=== PATIENT | male | born 2000 | race Caucasian/White ===

== ENCOUNTER 2020-09-09 10:31 | Emergency (ER) | payer SELFPAY ==
[~2020-09-09] VITALS: Ht 182.9 cm; Wt 81.6 kg
[2020-09-09 11:05] VITALS: BP_SYST 125
--- NOTE | 2020-09-09 11:15 | NUR ---
PT IN TENT. DR. ABDI EXAMIING PT
[2020-09-09 12:00] VITALS: BP_SYST 129
--- NOTE | 2020-09-09 12:00 | NUR ---
Patient given written and verbal discharge instructions and verbalizes understanding. ER MD discussed with patient the results and treatment provided. Patient in stable condition. ID arm band removed. Rx of NONE given. Patient educated on pain management and to follow up with PMD. Pain Scale 0/10 Opportunity for questions provided and answered. Medication side effect fact sheet provided.
== END 2020-09-09 12:00 | disposition home or self-care (01) ==
LOC: SED 10:31
DX: B34.9 Viral infection, unspecified (principal); R50.9 Fever, unspecified; R05 Cough; M79.18 Myalgia, other site; R63.0 Anorexia; Z20.828 Contact with and (suspected) exposure to other viral communicable diseases
CPT/HCPCS: 99283; U0003; C9803